=== PATIENT | female | born 1990 | race Caucasian/White ===

== ENCOUNTER 2022-11-11 02:54 | Emergency (ER) | payer MEDICAID ==
[~2022-11-11] VITALS: Ht 170.2 cm; Wt 77.1 kg
[2022-11-11 03:09] VITALS: BP_SYST 127
--- NOTE | 2022-11-11 03:25 | NUR ---
Patient presents to ED from home with c/o dizziness [id number] with sudden movements and nausea x1week. Patient reports pain 0/10 at this time. Patient denies vomiting. Patient A/Ox4, VSS, ambulatory, resp even and unlabored. Nad noted at this time. ER MD Jaramillo made aware.
--- NOTE | 2022-11-11 03:26 | NUR ---
Patient placed in waiting room at this time. Patient in stable condition.
--- NOTE | 2022-11-11 03:31 | NUR ---
ER MD CERDA EXAMING PATIENT IN TRIAGE ROOM
--- NOTE | 2022-11-11 04:10 | NUR ---
EKG performed done in triage room. ER MD Jaramillo given copy of EKG for review.
--- NOTE | 2022-11-11 04:30 | NUR ---
Patient placed in bed 8 with safety precautions in place and connected to monitor. Report given to CLAUDIA Song.
[2022-11-11 05:20] LABS: CALCIUM 9.7 mg/dL (8.4-11.0); CREATININE 0.85 mg/dL (0.55-1.30)
[2022-11-11 05:25] LABS: TOTAL BILIRUBIN 0.4 mg/dL (0.0-1.0)
[2022-11-11 05:36] LABS: BASOPHILS # (AUTO) 0.1 K/uL (0.0-0.2); BASOPHILS % (AUTO) 0.8 % (0.0-2.0); EOSINOPHILS # (AUTO) 0.2 K/uL (0.0-0.4); EOSINOPHILS % (AUTO) 2.8 % (0.0-4.0); HEMATOCRIT 40.2 % (36-48); HEMOGLOBIN 13.8 g/dL (12.0-16.0); LYMPHOCYTES # (AUTO) 2.7 K/uL (1.0-5.5); LYMPHOCYTES % (AUTO) 33.8 % (20.5-51.5); MEAN CORPUSCULAR HEMOGLOBIN 32 pg (27-31); MEAN CORPUSCULAR HGB CONC 34 % (32-36); MEAN CORPUSCULAR VOLUME 93 fL (79.0-98.0); MONOCYTES # (AUTO) 0.8 K/uL (0.0-1.0); MONOCYTES % (AUTO) 9.4 % (1.7-9.3); NEUTROPHILS # (AUTO) 4.2 K/uL (1.8-7.7); NEUTROPHILS % (AUTO) 53.2 % (40.0-70.0); PLATELET COUNT (AUTO) 385 K/uL (130-430); RED BLOOD CELL COUNT(AUTO) 4.35 MIL/uL (4.2-6.2)
[2022-11-11] MEDS ORDERED: MECL-225 PO (05:48)
[2022-11-11 06:05] VITALS: BP_SYST 127
--- NOTE | 2022-11-11 06:05 | NUR ---
Assisting primary nurse CLAUDIA Song. Patient given written and verbal discharge instructions and verbalizes understanding. ER MD discussed with patient the results and treatment provided. Patient in stable condition. ID arm band removed. Rx of Meclizine HCL given. Patient educated on pain management and to follow up with PMD. Pain Scale 0/10. Opportunity for questions provided and answered. Medication side effect fact sheet provided. Patient A/Ox4, VSS, ambulatory, resp even and unlabored. Nad noted at this time. Patient in stable condition and accompanied by significant other upon discharge.
== END 2022-11-11 06:05 | disposition home or self-care (01) ==
LOC: SED 02:54
DX: R42 Dizziness and giddiness (principal); R11.0 Nausea; Z79.899 Other long term (current) drug therapy
CPT/HCPCS: 36415; 80053; 81025; 85025; 93005; 99284